=== PATIENT | male | born 1945 | race Caucasian/White ===

== ENCOUNTER 2021-10-17 13:03 | Outpatient (RCR) | payer MEDICARE, OTHER | END 2021-11-03 | disposition home or self-care (01) | LOC: PT | DX: M54.42 Lumbago with sciatica, left side (principal) ==

== ENCOUNTER 2021-11-08 13:50 | Outpatient (RCR) | payer MEDICARE, OTHER | END 2021-11-25 17:00 | disposition home or self-care (01) | LOC: PT 13:50 | DX: M54.42 Lumbago with sciatica, left side (principal) ==

== ENCOUNTER → 2022-01-18 | Outpatient (CLI) | payer MEDICARE, OTHER | LOC: RAD 11:12 | DX: M16.12 Unilateral primary osteoarthritis, left hip (principal); M25.551 Pain in right hip ==